=== PATIENT | male | born 1995 | race African-American/Black ===

== ENCOUNTER 2024-09-04 12:59 | Emergency (ER) | payer MEDICAID, OTHER ==
[~2024-09-04] VITALS: Ht 182.9 cm; Wt 145.0 kg
[2024-09-04 13:11] VITALS: O2SAT 98
[2024-09-04 15:42] LABS: BASOPHILS % 0.4 % (0.0-2.0); EOSINOPHILS % 1.7 % (0.0-5.0); HEMATOCRIT. 42.6 % (42.0-52.0); LYMPHOCYTES % 19.2 % (20.0-50.0); MEAN CORPUSCULAR HEMOGLOBIN 28.8 pg (28.0-32.0); MEAN CORPUSCULAR VOLUME 87.2 fL (80.0-94.0); MEAN PLATELET VOLUME 8.3 fl (7.4-10.4); MONOCYTES % 6.1 % (2.0-8.0); NEUTROPHILS % 72.6 % (40.0-76.0); PLATELET 252 x1000/uL (130-400); RED BLOOD CELL COUNT 4.88 mill/uL (4.7-6.1); WHITE BLOOD COUNT 10.2 x1000/uL (4.5-11.0)
[2024-09-04 16:19] LABS: CHLORIDE 103 mEq/L (98-107); POTASSIUM 3.9 mEq/L (3.5-5.1); SODIUM 142 mEq/L (136-145)
[2024-09-04 16:20] LABS: CALCIUM 9.7 mg/dL (8.7-10.4); CARBON DIOXIDE 28 mEq/L (21-32)
[2024-09-04 16:25] LABS: GLUCOSE 98 mg/dL (70-105); UREA NITROGEN BLOOD 12 mg/dL (9-23)
[2024-09-04] MEDS ORDERED: IBUP-2029 MT (20:40)
[2024-09-04] MEDS ORDERED: AMOX1TAB16 MT (20:40)
[2024-09-04 21:04] VITALS: BP 153/81; PULSE 85; RESP 18; TEMP 36.8; O2SAT 98
[2024-09-04] MEDS ORDERED: IOHEXOL-300 100 ML BOTTLE ONE (22:46)
== END 2024-09-04 21:05 | disposition home or self-care (01) ==
LOC: ER 12:59
DX: R22.0 Localized swelling, mass and lump, head (principal); E78.00 Pure hypercholesterolemia, unspecified; Z20.822 Contact with and (suspected) exposure to COVID-19
CPT/HCPCS: 99285; 70491; 87426; 80048; 87430; 85025; 87070; 36415; Q9967